=== PATIENT | female | born 1990 | race American Indian/Alaskan Native ===

== ENCOUNTER 2016-07-31 18:41 | Emergency (ER) | payer MEDICAID ==
--- NOTE | 2016-07-31 20:06 | Emergency Department Report ---
Chief Complaint: Abdominal Pain Stated Complaint: ABD PAIN/16WKS Time Seen by Provider: 07/31/16 20:01 - HPI History of Present Illness: 25-year-old female 4 para 1, comes in for abdominal pains. She is 16 weeks and is having abdominal pain. Patient has not secured OB at this moment her appointment is scheduled for 08/06/2016. She does report she is taking vitamins. She denies any vaginal discharge vaginal bleeding. Admits to nausea and vomiting. - Exam Vital Signs: Vital Signs 07/31/16 19:17 Temperature 98.2 F Pulse Rate 87 Respiratory 20 Rate Blood Pressure 132/84 O2 Sat by Pulse 100 Oximetry Physical Exam: Patient alert and oriented 3 left lower quadrant pain palpation MSE screening note: Focused history and physical exam performed. Due to findings the following was ordered: CBC BMP urinalysis serum hCG ultrasound ordered patient be evaluated in the main ER ED Disposition for MSE Condition: Stable Instructions: Abdominal Pain (ED)
[2016-07-31 20:44] LABS: Hematocrit 39.2 % (30.3-42.9); Hemoglobin 13.1 gm/dl (10.1-14.3); Mean Corpuscular HGB Conc 33 % (30-34); Mean Corpuscular Hemoglobin 29 pg (28-32); Mean Corpuscular Volume 86 fl (79-97); Platelet Count 236 K/mm3 (140-440); Red Blood Count 4.55 M/mm3 (3.65-5.03); Red Cell Distribution Width 13.8 % (13.2-15.2); White Blood Count 9.8 K/mm3 (4.5-11.0)
[2016-07-31 20:52] LABS: Blood Urea Nitrogen 6 mg/dL (7-17); Calcium 9.1 mg/dL (8.4-10.2); Carbon Dioxide 23 mmol/L (22-30); Chloride 101.4 mmol/L (98-107); Glucose 90 mg/dL (65-100); Potassium 4.1 mmol/L (3.6-5.0); Sodium 138 mmol/L (137-145)
[2016-07-31 20:58] LABS: Anion Gap 18 mmol/L
--- NOTE | 2016-07-31 22:47 | Ultrasound Report ---
FINAL REPORT EXAM: US OB > = 14 WEEKS FETUS HISTORY: LMP 04/11/16, abd pain TECHNIQUE: Multiple grayscale sonographic images were obtained of the uterus and fetus. PRIORS: None. FINDINGS: There is a viable single intrauterine with breech presentation. Cervix measures 3.9 centimeters in length. Placenta is posterior. heart rate is detected at 146 beats per minute. Biparietal diameter 3.3 centimeters. Head circumference 12 centimeters. Abdominal circumference 10.1 centimeters. Femur length 1.9 centimeters. IMPRESSION: 1. Viable single intrauterine with estimated gestational age 16 weeks 0 days. Estimated due date 01/15/2017. Continued follow-up is recommended.
[2016-08-01 03:54] LABS: Bacteria,Urine 1+ /HPF (Negative); Bilirubin,Urine NEG (Negative); Blood,Urine NEG (Negative); Ketones,Urine 20 mg/dL (Negative); Leukocyte Esterase,Urine TR (Negative); Mucus,Urine FEW /HPF; Nitrite,Urine POS (Negative); Protein,Urine <15 mg/dL mg/dL (Negative); Urobilinogen,Urine < 2.0 mg/dL (<2.0)
--- NOTE | 2016-08-01 12:21 | Emergency Department Report ---
ED Abdominal Pain HPI - General Chief Complaint: Abdominal Pain Stated Complaint: ABD PAIN/16WKS Time Seen by Provider: 07/31/16 20:01 Source: patient Mode of arrival: Ambulatory Limitations: No Limitations - History of Present Illness Initial Comments: Patient reports she was sent to the ED for verification. She c/o low abdominal pain with nausea and vomiting that started one day ago. She denies fever, vaginal bleeding, vaginal discharge and dysuria. LMP 04/11/16, G4, A1, P1 MD Complaint: abdominal pain Onset/Timin -: days(s) Location: diffuse Radiation: none Migration to: no migration Severity: severe Severity scale (0 -10): 9 Quality: cramping Consistency: constant Improves With: nothing Worsens With: movement Context: other (NONE) Associated Symptoms: nausea, vomiting. denies: diarrhea, chills, constipation, dysuria, hematemesis, hematochezia, melena, hematuria, anorexia, syncope Treatments Prior to Arrival: other (NONE) - Related Data LMP Date: 04/11/16 LMP (females 10-50): Previous Rx's Medication Instructions Recorded Last Taken Type Acetaminophen [Acetaminophen TAB] 500 mg PO Q6HR #20 tablet 08/01/16 Unknown Rx Doxylamine/Pyridoxine HCl 1 each PO HS #5 tablet. 08/01/16 Unknown Rx [Garrick Nolen 10-10 mg Tablet] Vit No.130/Iron/FA 1 each PO DAILY #30 tablet 08/01/16 Unknown Rx [ Tablet] Allergies Allergy/AdvReac Type Severity Reaction Status Date / Time No Known Allergies Allergy Verified 07/31/16 19:16 ED Review of Systems ROS: Stated complaint: ABD PAIN/16WKS Other details as noted in HPI Constitutional: denies: chills, diaphoresis, fever, malaise, weakness Respiratory: denies: cough, orthopnea, shortness of breath, SOB with exertion, SOB at rest, stridor, wheezing Cardiovascular: denies: chest pain, palpitations, dyspnea on exertion, orthopnea , edema, syncope, paroxysmal nocturnal dyspnea Gastrointestinal: abdominal pain, nausea, vomiting. denies: diarrhea, constipation Genitourinary: denies: urgency, dysuria, frequency, hematuria, discharge, abnormal menses, dyspareunia Musculoskeletal: denies: back pain, joint swelling, arthralgia, myalgia Skin: denies: rash, lesions, change in color, change in hair/nails, pruritus Neurological: denies: headache, weakness, numbness, paresthesias, confusion, abnormal gait, vertigo ED Past Medical Hx - Medications Home Medications: Home Medications Medication Instructions Recorded Confirmed Last Taken Type Acetaminophen [Acetaminophen TAB] 500 mg PO Q6HR #20 tablet 08/01/16 Unknown Rx Doxylamine/Pyridoxine HCl 1 each PO HS #5 tablet. 08/01/16 Unknown Rx [Dictiffaniegioumar Nolen 10-10 mg Tablet] Vit No.130/Iron/FA 1 each PO DAILY #30 tablet 08/01/16 Unknown Rx [ Tablet] ED Physical Exam - General Limitations: No Limitations General appearance: alert, in no apparent distress - Head Head exam: Present: atraumatic - Eye Eye exam: Present: normal appearance Pupils: Present: normal accommodation - ENT ENT exam: Present: normal exam, normal orophraynx, mucous membranes moist. Absent: mucous membranes dry - Neck Neck exam: Present: normal inspection, full ROM. Absent: tenderness, meningismus, lymphadenopathy, thyromegaly - Respiratory Respiratory exam: Present: normal lung sounds bilaterally. Absent: respiratory distress, wheezes, rales, rhonchi, stridor, chest wall tenderness, accessory muscle use, decreased breath sounds, prolonged expiratory - Cardiovascular Cardiovascular Exam: Present: regular rate, normal rhythm, normal heart sounds. Absent: systolic murmur, diastolic murmur, rubs, gallop, clicks, JVD, S3, S4 - GI/Abdominal GI/Abdominal exam: Present: soft, tenderness (diffuse), normal bowel sounds. Absent: distended, guarding, rebound, rigid - Expanded GI/Abdominal Exam Expanded GI/Abdominal exam: Absent: psoas sign, obturator sign, heel tap sign, Gibbons's sign, Rovsing's sign, tenderness at [place]bur[place]'s Point, ascites - Extremities Exam Extremities exam: Present: normal inspection, full ROM, normal capillary refill. Absent: tenderness, pedal edema, joint swelling, calf tenderness - Back Exam Back exam: Present: normal inspection, full ROM. Absent: CVA tenderness (R), CVA tenderness (L) - Neurological Exam Neurological exam: Present: alert, oriented X3, CN II-XII intact, normal gait, reflexes normal. Absent: motor sensory deficit - Psychiatric Psychiatric exam: Present: normal affect, normal mood. Absent: depressed, agitated - Skin Skin exam: Present: warm, dry, intact, normal color. Absent: rash ED Course Vital Signs 07/31/16 08/01/16 08/01/16 19:17 08:23 13:20 Temperature 98.2 F 98.0 F 98 F Pulse Rate 87 98 H 79 Respiratory 20 16 18 Rate Blood Pressure 132/84 122/81 Blood Pressure 100/67 [Left] O2 Sat by Pulse 100 100 100 Oximetry 08/01/16 13:35 Temperature Pulse Rate Respiratory 20 Rate Blood Pressure Blood Pressure [Left] O2 Sat by Pulse Oximetry - Reevaluation(s) Reevaluation #1: 08/01/16 12:28 Intravenous fluids and anti-medics ordered Reevaluation #2: 08/01/16 14:05 Tylenol ordered Reevaluation #3: 08/01/16 14:16 ice chips given ED Medical Decision Making - Lab Data Result diagrams: 07/31/16 20:17 07/31/16 20:17 Lab Results 07/31/16 07/31/16 07/31/16 Range/Units 20:17 20:17 20:17 WBC 9.8 (4.5-11.0) K/mm3 RBC 4.55 (3.65-5.03) M/mm3 Hgb 13.1 (10.1-14.3) gm/dl Hct 39.2 (30.3-42.9) % MCV 86 (79-97) fl MCH 29 (28-32) pg MCHC 33 (30-34) % RDW 13.8 (13.2-15.2) % Plt Count 236 (140-440) K/mm3 Sodium 138 (137-145) mmol/L Potassium 4.1 (3.6-5.0) mmol/L Chloride 101.4 (98-107) mmol/L Carbon Dioxide 23 (22-30) mmol/L Anion Gap 18 mmol/L BUN 6 L (7-17) mg/dL Creatinine 0.4 L (0.7-1.2) mg/dL Estimated GFR > 60 ml/min BUN/Creatinine Ratio 15.00 % Glucose 90 (65-100) mg/dL Calcium 9.1 (8.4-10.2) mg/dL HCG, Qual Positive (Negative) Urine Color (Yellow) Urine Turbidity (Clear) Urine pH (5.0-7.0) Ur Specific [place] (1.003-1.030) Urine Protein (Negative) mg/dL Urine Glucose (UA) (Negative) mg/dL Urine Ketones (Negative) mg/dL Urine Blood (Negative) Urine Nitrite (Negative) Urine Bilirubin (Negative) Urine Urobilinogen (<2.0) mg/dL Ur Leukocyte Esterase (Negative) Urine WBC (Auto) (0.0-6.0) /HPF Urine RBC (Auto) (0.0-6.0) /HPF U Epithel Cells (Auto) (0-13.0) /HPF Urine Bacteria (Auto) (Negative) /HPF Amorphous Crystals Urine Mucus /HPF 08/01/16 Range/Units 02:08 WBC (4.5-11.0) K/mm3 RBC (3.65-5.03) M/mm3 Hgb (10.1-14.3) gm/dl Hct (30.3-42.9) % MCV (79-97) fl MCH (28-32) pg MCHC (30-34) % RDW (13.2-15.2) % Plt Count (140-440) K/mm3 Sodium (137-145) mmol/L Potassium (3.6-5.0) mmol/L Chloride (98-107) mmol/L Carbon Dioxide (22-30) mmol/L Anion Gap mmol/L BUN (7-17) mg/dL Creatinine (0.7-1.2) mg/dL Estimated GFR ml/min BUN/Creatinine Ratio % Glucose (65-100) mg/dL Calcium (8.4-10.2) mg/dL HCG, Qual (Negative) Urine Color Yellow (Yellow) Urine Turbidity Clear (Clear) Urine pH 6.0 (5.0-7.0) Ur Specific [place] 1.011 (1.003-1.030) Urine Protein <15 mg/dl (Negative) mg/dL Urine Glucose (UA) Neg (Negative) mg/dL Urine Ketones 20 (Negative) mg/dL Urine Blood Neg (Negative) Urine Nitrite Pos (Negative) Urine Bilirubin Neg (Negative) Urine Urobilinogen < 2.0 (<2.0) mg/dL Ur Leukocyte Esterase Tr (Negative) Urine WBC (Auto) 1.0 (0.0-6.0) /HPF Urine RBC (Auto) 3.0 (0.0-6.0) /HPF U Epithel Cells (Auto) 4.0 (0-13.0) /HPF Urine Bacteria (Auto) 1+ (Negative) /HPF Amorphous Crystals 1+ Urine Mucus Few /HPF Vital Signs 07/31/16 08/01/16 19:17 08:23 Temperature 98.2 F 98.0 F Pulse Rate 87 98 H Respiratory 20 16 Rate Blood Pressure 132/84 122/81 O2 Sat by Pulse 100 100 Oximetry - Radiology Data Radiology results: image reviewed EXAM: US OB gt; = 14 WEEKS FETUS HISTORY: LMP 04/11/16, abd pain TECHNIQUE: Multiple grayscale sonographic images were obtained of the uterus and fetus. PRIORS: None. FINDINGS: There is a viable single intrauterine with breech presentation. Cervix measures 3.9 centimeters in length. Placenta is posterior. heart rate is detected at 146 beats per minute. Biparietal diameter 3.3 centimeters. Head circumference 12 centimeters. Abdominal circumference 10.1 centimeters. Femur length 1.9 centimeters. IMPRESSION: 1. Viable single intrauterine with estimated gestational age 16 weeks 0 days. Estimated due date 01/15/2017. Continued follow-up is recommended. - Medical Decision Making During the course of ED, intravenous fluids, anti-medics, laboratory and radiology studies were ordered. The Imaging studies revealed Viable single intrauterine with estimated gestational age 16 weeks 0 days. Estimated due date 01/15/2017. She tolerated ice chips with no reports of N/V prior to discharge. Patient was sent home with prescriptions for Vitamins, Tylenol and Diclegis, follow with selective referral given at discharge, she verbalize understanding - Differential Diagnosis Abdominal pain, Nausea/Vomiting, IUP@16 weeks Critical care attestation.: If time is entered above; I have spent that time in minutes in the direct care of this critically ill patient, excluding procedure time. ED Disposition Clinical Impression: Abdominal pain affecting Disposition: DISCHARGED TO HOME OR SELFCARE Is pt being admited?: No Does the pt Need Aspirin: No Condition: Stable Instructions: Abdominal Pain (ED), (ED) Additional Instructions: Take medication as directed. Follow with Dr. Cortez as scheduled on Saturday August 06, 2016. Return back to the ED for worsening symptoms or concerns Prescriptions: Acetaminophen [Acetaminophen TAB] 500 mg PO Q6HR #20 tablet Doxylamine/Pyridoxine HCl [Diclegis Dr 10-10 mg Tablet] 1 each PO HS #5 tablet. Vit No.130/Iron/FA [ Tablet] 1 each PO DAILY #30 tablet Referrals: CHRISTY CORTEZ MD [Primary Care Provider] - 3-5 Days Forms: Work/School Release Form(ED) Time of Disposition: 14:15
[2016-08-01] MEDS ORDERED: ZOFRAN IV ONE (12:28)
[2016-08-01] MEDS ORDERED: NACL 0.9% 1000 ML 1,000 ML IV ONE (12:28)
[2016-08-01] MEDS ORDERED: TYLENOL PO ONE (14:05)
[2016-08-01 18:47] VITALS: BP 100/67
== END 2016-08-01 15:00 | disposition home or self-care (01) ==
LOC: ED 18:41
DX: O26.892 Other specified pregnancy related conditions, second trimester (principal); R10.30 Lower abdominal pain, unspecified; Z3A.16 16 weeks gestation of pregnancy
CPT/HCPCS: 36415; 76805; 80048; 81001; 84703; 85027; 96361; 96374; 99284; J2405; J7030